=== PATIENT | male | born 1955 | race Native Hawaiian/Other Pacific Islander ===

== ENCOUNTER 2020-07-20 20:55 | Emergency (ER) | payer MEDICARE, MEDICAID ==
[~2020-07-20] VITALS: Ht 157.5 cm; Wt 54.5 kg
[2020-07-20] MEDS ORDERED: ALBU8HFA PO (22:56)
[2020-07-20] MEDS ORDERED: BENZ-16 PO (22:56)
[2020-07-20 23:10] VITALS: BP 122/85
== END 2020-07-20 23:12 | disposition home or self-care (01) ==
LOC: ER 20:56
DX: J06.9 Acute upper respiratory infection, unspecified (principal); R05 Cough; R09.89 Other specified symptoms and signs involving the circulatory and respiratory systems; Z20.828 Contact with and (suspected) exposure to other viral communicable diseases; G89.29 Other chronic pain; Z88.6 Allergy status to analgesic agent; Z79.899 Other long term (current) drug therapy
CPT/HCPCS: 36415; 87635; 99283

== ENCOUNTER 2024-08-10 10:08 | Outpatient (CLI) | payer MEDICARE, MEDICAID | END 2024-08-10 23:59 | disposition home or self-care (01) | LOC: MRI02 10:08 | PROVIDERS: ATTEND Podiatrist Foot & Ankle Surgery | DX: M19.071 Primary osteoarthritis, right ankle and foot (principal); M25.471 Effusion, right ankle; M79.671 Pain in right foot; M76.61 Achilles tendinitis, right leg | CPT/HCPCS: 73721 ==